=== PATIENT | male | born 1970 | race Caucasian/White ===

== ENCOUNTER 2016-06-17 08:12 | Emergency (ER) ==
[2016-06-17 08:26] VITALS: BP 136/086
--- NOTE | 2016-06-17 09:19 | PROVIDER DOCUMENTATION ---
HPI-General Adult - General Source: patient - History of Present Illness -Gen Adult Nature of Presenting Problems: patient is a 46 y/o M that presents to the ER with 2 days of cough/congestion, body aches, sore throat, nasal congestion, and body aches. Denies abdominal pain or chest pain. Location of Pain/Injury: reports: generalized Pain Radiation: reports: no radiation Quality of Pain: reports: aching Severity: reports: moderate Onset/Duration: reports: gradual, 2 days ago Timing: reports: still present, constant Context/Activities at Onset: reports: none Modifying Factors: worse with: coughing Associated Symptoms: reports: cough, EENT symptoms, fever/chills, muscle aches. denies: constipation, diarrhea, genitourinary problems, nausea, vomiting Similar Symptoms Previously?: No Recently seen or treated by another doctor?: No <Blas Coto - Last Filed: 06/17/16 09:16> <Dejuan Aparicio - Last Filed: 06/17/16 10:17> - General Chief Complaint: Flu Symptoms Stated Complaint: COLD SX Time Seen by Provider: 06/17/16 09:04 Allergies/Adverse Reactions: Patient Allergies Allergy/AdvReac Type Severity Reaction Status Date / Time No Known Allergies Allergy Verified 06/17/16 08:25 Home Medications: Home Medication List Medication Instructions Recorded Confirmed Last Taken Type Hydrocodone/Acetaminophen [[place] 10 mg PO TID 06/14/16 06/17/16 Unknown History 10-325 Tablet] Naproxen 500 mg PO BID PRN PRN #60 tablet 06/14/16 06/17/16 Unknown Rx Amoxicillin 875 mg PO BID #20 tablet 06/17/16 Unknown Rx Guaifenesin/Codeine [Robitussin-AC] 10 ml PO Q4H PRN PRN #4 oz 06/17/16 Unknown Rx Review of Systems - Adult - REVIEW OF SYSTEMS - ADULT Constitutional: reports: chills, fever Eyes: reports: no symptoms reported Ears, Nose, Mouth & Throat: reports: sinus problem, throat pain. denies: ear pain Cardiovascular: reports: no symptoms reported Respiratory: reports: cough, shortness of breath Gastrointestinal: denies: diarrhea, nausea, vomiting Genitourinary: reports: no symptoms reported Musculoskeletal: reports: muscle aches, muscle weakness Integumentary: reports: no symptoms reported Neurological: reports: no symptoms reported Psychiatric: reports: no symptoms reported Endocrine: reports: no symptoms reported Hematologic/Lymphatic: reports: no symptoms reported Allergic/Immunologic: reports: no symptoms reported All Other Systems: Reviewed and Negative <Blas Coto - Last Filed: 06/17/16 09:16> Past History - Adult - PAST MEDICAL HISTORY-ADULT Review of Records: reports: Old Records Reviewed, Nursing Assessment Review, Medications Reviewed Major Childhood Illnesses: reports: denies history Cardiovascular: reports: denies history Respiratory: reports: denies history Gastrointestinal: reports: denies history Obstetrical/Gynecological: reports: denies history Genitourinary: reports: denies history Musculoskeletal: reports: chronic pain, intervertebral disc disease Neurological: reports: denies history Psychiatric: reports: anxiety Endocrine/Immune: reports: denies history, other (chronic pain) Other Conditions: reports: denies history - PRIOR SURGERIES/PROCEDURES Surgical/Procedure History: reports: other - PRIOR HOSPITALIZATIONS Prior Hospitalizations: reports: none - IMMUNIZATION STATUS Childhood Immunizations: See Nurse Assessment Flu Vaccine: See Nurse Assessment - FAMILY HISTORY Family History: reviewed, not pertinent - SOCIAL HISTORY Smoking: non-smoker Living Situation: family <Blas Coto - Last Filed: 06/17/16 09:16> Physical Exam-General - PHYSICAL EXAM-ADULT Initial Vital Signs Reviewed: Yes - CONSTITUTIONAL General Appearance: alert, mild distress - EYES Eyes: PERRL/EOMI, pink conjunctivae - HEAD, EARS, NOSE, MOUTH & THROAT HENMT: normocephalic/atraumatic, moist mucous membranes, TMs normal, pharynx normal, other (nasal congestion) - NECK Neck: full range of motion, normal inspection. negative: lymphadenopathy - RESPIRATORY Respiratory: lungs clear, normal breath sounds, no respiratory distress, no accessory muscle use - CARDIOVASCULAR Cardiovascular: regular rate, rhythm, no edema - GASTROINTESTINAL (ABDOMEN) Abdominal Exam: normal bowel sounds, non tender, soft, no organomegaly, no pulsatile mass - MUSCULOSKELETAL Extremity: normal range of motion, normal inspection, no pedal edema, no calf tenderness - SKIN Integumentary: normal color, warm/dry - NEUROLOGIC Neurologic: grossly normal, no motor/sensory deficits - PSYCHIATRIC Psych/Mental Status: normal mood/affect, normal thought content, normal thought process, oriented x 3 <Coto,Blas T. - Last Filed: 06/17/16 09:16> Progress - PLAN OF CARE/RESULTS Progress/Plan/Lab Results: Vital Signs - 24 hr 06/17/16 08:23 Temperature 101.9 F H Pulse Rate 90 Respiratory 16 Rate Blood Pressure 136/086 O2 Sat by Pulse 98 Oximetry Orders Category Date Time Status CHEST-2 VIEWS [RAD] Stat Exams 06/17/16 09:19 Taken CBC WITH DIFF [HEME] Stat Lab 06/17/16 09:[address] Stat Lab 06/17/16 09:35 Completed Flu [INFLUENZA SCREEN PL] Stat Lab 06/17/16 08:25 Completed Laboratory Tests 06/17/16 06/17/16 06/17/16 08:25 09:35 09:37 WBC 10.01 RBC 5.22 Hgb 15.2 Hct 45.0 MCV 86.2 MCH 29.1 MCHC 33.8 RDW Std Deviation 13.2 Plt Count 146 MPV 11.6 H Immature Gran % (Auto) 0.1 Neut % (Auto) 84.7 H Lymph % (Auto) 5.6 L [place] % (Auto) 9.1 Eos % (Auto) 0.3 Baso % (Auto) 0.2 Immature Gran # (Auto) 0.01 Neut # (Auto) 8.48 H Lymph # (Auto) 0.56 L [place] # (Auto) 0.91 H Eos # (Auto) 0.03 Baso # (Auto) 0.02 Influenza A (Rapid) NEGATIVE Influenza B (Rapid) NEGATIVE Group A Strep Rapid NEGATIVE - XRAY 1 XRAY Study: Chest Impression: Normal XRAY Interpretation: nad <Dejuan Aparicio - Last Filed: 06/17/16 10:17> Departure <Blas Coto - Last Filed: 06/17/16 09:16> - Departure Time of Disposition Order: 10:15 Certified Medical Emergency: Emergent <Dejuan Aparicio - Last Filed: 06/17/16 10:17> - Departure DIAGNOSIS: Upper respiratory infection Qualifiers: URI type: unspecified viral URI Qualified Code(s): J06.9 - Acute upper respiratory infection, unspecified; B97.89 - Other viral agents as the cause of diseases classified elsewhere Disposition: HOME 01 Condition: Stable Additional Instructions: ED Follow Up Instructions: You have been treated by a care provider in the Emergency Department. These instructions are being provided to you so you can have an understanding of how to care for yourself upon discharge. Upon discharge from the Emergency Department, you are responsible for making arrangements for follow-up care by a physician of your choice. Take all prescribed medications as directed. Return to the Emergency Department immediately for any new or worsening symptoms. You may call the Physician Referral phone number at [phone] to obtain a list of Physicians who are taking new patients. Prescriptions: Guaifenesin/Codeine [Robitussin-AC] 10 ml PO Q4H PRN PRN #4 oz PRN Reason: Cough Amoxicillin 875 mg PO BID #20 tablet Referrals: None,PCP [Primary Care Provider] - Bobby Reyna MD [STAFF PHYSICIAN] - Call for Appoint. 1-2days Instructions: Upper Respiratory Infection, Adult, [id number] Attestation - Scribe Verification/Attestation Scribe:: Blas Coto Acting as Scribe for:: Dejuan Aparicio Scribe documention review:: This chart was documented by a scribe and accurately reflects the service the provider performed and the decisions made by the provider. <Blas Coto - Last Filed: 06/17/16 09:16> Physician Attestation - Physician Attestation I, the provider, attest to the following statement:: Dejuan Aparicio Physician documentation Attestation:: This documentation recorded by the scribe accurately reflects the service I personally performed and the decisions made by me. <Blas Coto - Last Filed: 06/17/16 09:16>
[2016-06-17 09:42] LABS: MANUAL DIFF NEEDED? NO
[2016-06-17 09:43] LABS: BASO% 0.2 % (0.0-0.8); EOS# 0.03 X1000 (0.0-0.7); EOS% 0.3 % (0.0-10.0); HEMOGLOBIN 15.2 g/dL (14.0-18.0); IMM GRAN# 0.01 X1000 (0.0-0.04); IMM GRAN% 0.1 % (0.0-0.5); LYMPH# 0.56 X1000 (1.2-3.4); LYMPH% 5.6 % (20.5-51.1); MCH 29.1 PG (27-31); MCHC 33.8 g/dL (33-37); MCV 86.2 FL (81-99); MONO# 0.91 X1000 (0.11-0.59); MONO% 9.1 % (1.7-9.3); MPV 11.6 FL (7.4-10.4); NEUT% 84.7 % (42.2-75.2); PLT 146 X1000 (130-400); RBC 5.22 XMIL (4.7-6.1)
--- NOTE | 2016-06-17 11:20 | Diag Imaging Result Document ---
PROCEDURE NAME: CHEST-2 VIEWS - 06/17/2016 CHEST, 2 VIEWS: 08/10/2012. FINDINGS: Heart size is normal. There are a few small calcified granulomas and calcified hilar lymph nodes on the left from old granulomatous disease similar to the previous exam. The lungs otherwise appear clear. There is no consolidation, pleural effusion, or pneumothorax identified. There is mild midthoracic spondylosis noted. IMPRESSION: No evidence of acute disease.
== END 2016-06-17 10:45 | disposition home or self-care (01) ==
LOC: P.ED 08:12
DX: J06.9 Acute upper respiratory infection, unspecified (principal); R05 Cough; R09.81 Nasal congestion; M79.1 Myalgia; J02.9 Acute pharyngitis, unspecified; R50.9 Fever, unspecified; R06.02 Shortness of breath; M62.81 Muscle weakness (generalized); G89.29 Other chronic pain; Z79.899 Other long term (current) drug therapy
CPT/HCPCS: 36415; 71020; 85025; 87081; 87430; 87804; 99283